=== PATIENT | male | born 2000 | race Hispanic/Latino ===

== ENCOUNTER 2021-10-27 01:05 | Emergency (ER) | payer SELFPAY ==
[2021-10-27 02:00] LABS: #Eosinphils 0.1 10x3/uL (0.0-0.5); #Monocytes 1.2 10x3/uL (0.0-1.1); #Neutrophils 8.2 10x3/uL (1.5-8.4); %Basophils 0.3 % (0.0-2.0); %Eosinophils 0.8 % (0.0-6.0); %Lymphocytes 20.6 % (18.0-47.0); %Monocytes 9.7 % (0.0-10.0); Hemoglobin 14.3 g/dL (13.5-17.5); Mean Corpuscular Hemoglobin 29.1 pg (27.0-33.0); Mean Corpuscular Volume 85.4 fl (81.2-95.1); Mean Platelet Volume 9.6 fl (7.4-10.4); Platelet Count 244 10x3/uL (150-450); RBC Distribution Width 11.8 % (11.5-14.5); Red Blood Cell (RBC) Count 4.92 10x6/uL (4.32-5.72); White Blood Cell (WBC) Count 12.3 10x3/uL (3.5-10.5)
[2021-10-27 02:02] LABS: ALT (SGPT) 69 U/L (8-55); AST (SGOT) 39 U/L (5-34); Albumin 4.6 g/dL (3.5-5.0); Alkaline Phosphatase 71 U/L (40-110); Anion Gap 14 mmol/L (10-20); BUN (Urea Nitrogen) 12 mg/dL (8.9-20.6); Bilirubin, Total 0.7 mg/dL (0.2-1.2); Calc. Creatinine Clearance 0 mL/min (70-130); Calcium 9.3 mg/dL (7.8-10.44); Carbon Dioxide 24 mmol/L (22-29); Chloride 101 mmol/L (98-107); Globulin 4.3 g/dL (2.4-3.5); Glucose 98 mg/dL (70-105); Potassium 3.7 mmol/L (3.5-5.1); Protein, Total 8.9 g/dL (6.0-8.3); Sodium 135 mmol/L (136-145)
[2021-10-27] MEDS ORDERED: Morphine 4 MG/ML VIAL ONE (02:02)
[2021-10-27] MEDS ORDERED: Ondansetron PF 4 MG/2 ML Vial ONE (02:02)
[2021-10-27] MEDS ORDERED: Ketorolac Tromethamine 30 MG/ML VIAL ONE (02:47)
[2021-10-27] MEDS ORDERED: Cefepime 2 GM VIAL ONE (02:47)
[2021-10-27 03:02] LABS: SARS-CoV-2 NAA Rapid Test Not Detected (NotDetected)
[2021-10-27] MEDS ORDERED: Lidocaine 1% w/Epinephrine 1:100K 20 ML VIAL ONE (03:48)
== END 2021-10-27 04:23 | disposition home or self-care (01) ==
LOC: CSHERS 01:05
DX: J11.1 Influenza due to unidentified influenza virus with other respiratory manifestations (principal); L02.416 Cutaneous abscess of left lower limb; Z20.822 Contact with and (suspected) exposure to COVID-19
CPT/HCPCS: 10060; 36415; 80053; 83605; 85025; 87040; 96365; 96367; 96375; J0692; J1885; J2270; J2405; J3370; U0002

== ENCOUNTER 2021-10-30 08:48 | Emergency (ER) | payer SELFPAY ==
[2021-10-30] MEDS ORDERED: Triple Antibiotic Oint 1 GM Packet ONE (09:20)
== END 2021-10-30 09:25 | disposition home or self-care (01) ==
LOC: CSHERS 08:48
DX: Z48.817 Encounter for surgical aftercare following surgery on the skin and subcutaneous tissue (principal)
CPT/HCPCS: 99282